=== PATIENT | male | born 2000 | race Hispanic/Latino ===

== ENCOUNTER 2023-09-12 14:02 | Emergency (ER) | payer OTHER, SELFPAY ==
[2023-09-12] MEDS ORDERED: Lidocaine 1% w/Epinephrine 1:200K 30 ML VIAL ONE (14:37)
[2023-09-12] MEDS ORDERED: Boostrix 0.5 ML (Tdap) VIAL (>/=7 yrs of age) ONE (14:37)
[2023-09-12] MEDS ORDERED: Bupivacaine PF 0.5% 30 ML VIAL ONE (14:38)
[2023-09-12] MEDS ORDERED: Bupivacaine HCl 0.5%/Epinephrine 1:200,000/PF 30 ml Vial FS SCH (15:00)
== END 2023-09-12 16:00 | disposition home or self-care (01) ==
LOC: CSHERS 14:02
DX: S01.511A Laceration without foreign body of lip, initial encounter (principal); S09.93XA Unspecified injury of face, initial encounter; F17.290 Nicotine dependence, other tobacco product, uncomplicated; W50.0XXA Accidental hit or strike by another person, initial encounter; Y93.68 Activity, volleyball (beach) (court)
CPT/HCPCS: 12011; 70150; 90471; 90715; J0665